=== PATIENT | female | born 1980 ===

== ENCOUNTER 2019-12-07 15:20 | Observation (INO) ==
--- NOTE | 2019-12-07 16:29 | History & Physical Report ---
Date of Service December 07, 2019 Assessment & Plan (1) Ovarian mass, right: (2) : Patient is with a right adnexal mass and fluid, most likely blood , that is very suspicious for ectopic . She is hemodynamically stable with normal h/h. Her quant is 835. It is possible that she has a very early iup with this quant. However, this does not r/o ectopic and there is some, likely hemorrhagic process going on in the right adnexa. It is possible this has ruptured a couple of days ago and has walled itself off and is not actively bleeding. It is possible that she has a hemorrhagic ovarian cyst with clot and hemoperitoneum, with a intrauterine . The bottom line is that to know for sure would require dx lpsc for evaluation of the pelvis and right adnexa. Described this to the patient with the risks: anesthesia, bleeding, transfusion, damage to surrounding structures (bowel, bladder , vessels, nerves, ureters), need for further surgery, persistent of unknown location. If ectopic would do salpingectomy or salpingostomy. If ruptured cyst, would cauterize, possibly do cystectomy or removal of ovary, depending on the situation, however, would try to avoid this if does not appear to be an ectopic . Discussed that we could possible manage with very close expectant f/u following quants and serial ultrasounds, but would probably want to hospitalize her for observation, because could start bleeding again at any time. Patient is interested in proceeding with definitive diagnosis by surgery. Consent reviewed and signed and will proceed. Did discuss that if findings not consistent with ectopic, may be an intrauterine --viability unknown. May need further close follow up with quants and ultrasounds for viability in that situation. Discussed surgery could cause loss of an intrauterine , but given the uncertainty of the diagnosis makes it prudent to proceed with surgery. She agrees History of Present Illness Chief Complaint: irregular bleeding, pelvic pain Primary Care Provider: John Mccracken Patient is a [id number] with LMP of 10/20 (normal and when expected) who presents to the office today to see Dr. Apple for irregular bleeding and pelvic pain. She was in her usual state of health until her lmp on 10/20. She notes that she has normal monthly menstrual periods without DUB. She then started spotting on 6/5, which lasted for 5 days, and then proceeded to have another period. She reports "a few weeks ago" nahum had an episode of bad pain in her lower belly that bent her over. Does not remember that this was related to period. It resolved. Two days ago she had another pain like this. Was very uncomfortable. Helped when she laid still on her belly. Today she notes midline lower abdominal pain that feels crampy in nature. Not as bad as it was 2 days ago. She noted that her bleeding a couple of days ago had really d ecreased to just some brown d/c on her tampon. She switched to a liner and a couple of hours later had filled it with red blood, continues to have heavy red bleeding. Patient has a hx of an ectopic , she thinks maybe on her right treated with MTX. She has hx of c/s 13 years ago. She has a hx of CT in her early 20s, treated. She is with her same partner for the last 14 years, he is the father of her child. Denies any new partners. She has not contracepted in years. Would be ok with a . Saw Dr. Apple in the clinic having an ultrasound first. US shows a nl size and shape uterus with a small microcystic are in the fundus. No sac noted. The left ovary is small with a 1.9cm complex cystic area. There is a complex appearing, vascular area in the right adnexa with a ?ectopic /rounded mass area, measuring 2.5x2.4x2.7 cm. There appears to be fluid around this. The entire area has a volume of 96cc. She had a +upt in the office. She was sent to the ED for concern for ruptured ectopic . Allergies Allergy/AdvReac Type Severity Reaction Status Date / Time Penicillins Allergy Intermediate HIVES A Verified 12/07/19 16:18 CHILD Home Medications Home Medications Medication Instructions Recorded Confirmed Type multivitamin 1 tab PO DAILY 12/07/19 12/07/19 History omega 3-qnp-xai-fish oil [Fish Oil] 1 cap PO DAILY 12/07/19 12/07/19 History Patient History Medical History Bartholin's cyst History of chlamydia History of ectopic Surgical History H/O colposcopy with cervical biopsy 2005, 2011 History of delivery Social History (Updated 12/07/19 @ 16:37 by Khloe Mims MD, FACOG) Preferred Language: German Communication Ability: Effective marital status: Life Partner Current Living Situation: Family Feels Safe at Home: Yes Smoking Status: Never smoker Hx Alcohol Use: No Hx Substance Use: No OB History g1--c/s g2--ectopic, ?right, treated with MTX DIESEL LUBE TECH History hx of abnl pap with colpo in 2011, [address] in 20s denies other stds. Review of Systems All systems reviewed & are unremarkable except as noted in HPI & below Physical Exam Constitutional: WD/WN, vitals as above Neck: trachea midline, no thyromegaly Respiratory: normal respiratory effort, lungs clear to auscultation Cardiovascular: RRR, no murmur, no edema Gastrointestinal (Abdomen): soft, nondistended, tender to palpation L>R with some guarding but no rebound Psychiatric: A+Ox3, euthymic affect Genitourinary: nefg, nl bus, no blood noted exam limited to BME--vagina palpates normal, tenderness to palpation of the pelvis in general, tenderness to motion of the uterus, no appreciable adnexal masses or tenderness, cx palpates normal and nulliparous. Results & Data ([facility]) Vital Signs (Past 12 Hours) Vital Signs Temp Pulse Resp BP Pulse Ox 12/07/19 15:41 37.5 C 71 18 122/83 99 Coding Level of Care Code None Diagnoses Ovarian mass, right N83.8 Z34.90
--- NOTE | 2019-12-07 16:33 | Emergency Department Note ---
ED Visit Note I did not see this patient, directly see by Dr Mims. .
[2019-12-07 17:08] LABS: Basophils # (auto) 0.06 K/uL (0-0.2); Basophils % (auto) 0.5 %; Eosinophils # (auto) 0.06 K/uL (0-0.5); Eosinophils % (auto) 0.5 %; Hematocrit (blood only) 37.9 % (37-47); Hemoglobin 12.5 g/dL (12.0-16.0); Immature Granulocytes # (auto) 0.03 K/uL (0.00-0.02); Immature Granulocytes % (auto) 0.3 %; Lymphocytes # (auto) 2.85 K/uL (1.2-3.4); Lymphocytes % (auto) 24.2 %; Mean Corpuscular Hemoglobin 29.9 pg (25-34); Mean Corpuscular Volume 90.7 fL (80-100); Mean Platelet Volume 9.9 fL (7.4-10.4); Monocytes # (auto) 0.92 K/uL (0.11-0.59); Monocytes % (auto) 7.8 %; Neutrophils # (auto) 7.86 K/uL (1.4-6.5); Neutrophils % (auto) 66.7 %; Platelet Count 325 K/uL (130-400); Red Blood Count 4.18 M/uL (4.2-5.4); White Blood Count 11.78 K/uL (4.8-10.8)
[2019-12-07] MEDS: LACTATED RINGER'S 1,000 ML IV SCH (17:08)
[2019-12-07 17:25] LABS: Albumin Level 3.6 gm/dl (3.4-5.0); BUN Creatinine Ratio 14.3 (10-20); Calcium 9.6 mg/dl (8.5-10.1); Creatinine Clr Calc Pharmacy 71.7 ml/min; Est GFR (African American) 88.6; Est GFR (Non-African American) 76.4; Potassium 3.4 mmol/L (3.5-5.1)
[2019-12-07 17:28] LABS: Albumin Globulin Ratio 0.9 (0.9-2); Bilirubin,Total 0.4 mg/dl (0.2-1); Globulin 3.9 gm/dl (2.5-4.0); Total Protein 7.5 gm/dl (6.4-8.2)
[2019-12-07] MEDS ORDERED: BUPIVACAINE 0.5 % 5 MG/1 ML MPF 30ML VIAL ONE (18:41)
--- NOTE | 2019-12-07 19:10 | Anesthesiology Progress Note ---
Date of Service December 07, 2019 Anesthesia Post Procedure Vital Signs Vital Signs: Temp Pulse Pulse Resp BP BP Pulse Ox 12/07/19 19:00 63 16 114/69 100 12/07/19 17:09 73 20 107/74 100 12/07/19 15:41 37.5 C 71 18 122/83 99 Transfer of Care Handoff Completed per policy Notes Mental Status: alert / awake / arousable and participated in evaluation Patient Amnestic to Procedure: Yes Nausea / Vomiting: adequately controlled Pain: adequately controlled Airway Patency, RR, SpO2: stable & adequate BP & HR: stable & adequate Hydration State: stable & adequate Anesthetic Complications: no major complications apparent
--- NOTE | 2019-12-07 19:11 | Anesthesiology Consultation ---
Date of Service December 07, 2019 Assessment & Plan Chart Review Chart Review: Acceptable Risk for Surgery Consults Requested none History Surgery Operation Date: 12/07/19 18:30 Proposed Procedures p Laparoscopic Operative - Khloe Mims MD, FACOG Height/Weight Height: 4 ft 11 in Weight: 76.6 kg Allergies Allergy/AdvReac Type Severity Reaction Status Date / Time Penicillins Allergy Intermediate HIVES A Verified 12/07/19 16:18 CHILD Medications Home Medications Medication Instructions Recorded Confirmed Last Taken multivitamin 1 tab PO DAILY 12/07/19 12/07/19 12/07/19 omega 2-kbg-ntt-fish oil [Fish Oil] 1 cap PO DAILY 12/07/19 12/07/19 12/07/19 Active Medications Generic Name Dose Route Start Last Admin Trade Name Freq PRN Reason Stop Dose Admin Lactated Ringer's 1,000 mls @ 125 mls/hr 12/07/19 16:15 12/07/19 17:08 Lr IV 01/06/20 16:14 125 mls/hr .Q8H KENJI Administration Past Medical History Medical History Bartholin's cyst History of chlamydia History of ectopic Past Surgical History Surgical History H/O colposcopy with cervical biopsy 2011 History of delivery Social History Smoking Status: Never smoker Hx Alcohol Use: No Hx Substance Use: No Physical Exam Vital Signs Last Vital Signs Temp 37.5 C 12/07/19 15:41 Pulse 63 12/07/19 19:00 Resp 16 12/07/19 19:00 BP 114/69 12/07/19 19:00 Pulse Ox 100 12/07/19 19:00 Testing Laboratory Results 12/07/19 16:57 12/07/19 16:57 HCG, Quant 835 mIU/ml 12/07/19 16:57 Blood Type O Positive 12/07/19 16:57 Antibody Screen NEGATIVE 12/07/19 16:57 12/07/19 16:57 HCG, Quant 835
[2019-12-07] MEDS ORDERED: MIDAZOLAM HCL 1 MG/ML 2ML VIAL ONE (19:14)
[2019-12-07] MEDS ORDERED: fentaNYL citrate 100 MCG/2 ML VIAL ONE ×2 (19:15)
[2019-12-07] MEDS ORDERED: LIDOCAINE HCL 2% 2 ML VIAL/AMP(20MG/ML) INFIL ONE (19:23)
[2019-12-07] MEDS ORDERED: ONDANSETRON INJ 2 MG/ML 2 ML VIAL ONE (19:23)
[2019-12-07] MEDS ORDERED: PROPOFOL IV EMULSION 10 MG/ML 20 ML VIAL IV ONE (19:23)
[2019-12-07] MEDS ORDERED: ROCURONIUM BROMIDE 10 MG/ML 5 ML VIAL IV ONE ×3 (19:23→21:07)
[2019-12-07] MEDS ORDERED: GLYCOPYRROLATE 0.2 MG/ML VIAL ONE (19:24)
[2019-12-07] MEDS ORDERED: NEOSTIGMINE METHYLSULFATE 5 MG/5 ML SYR ONE (19:24)
[2019-12-07] MEDS ORDERED: DEXAMETHASONE SOD INJ 4 MG/ML VIAL ONE (19:24)
[2019-12-07] MEDS ORDERED: PROMETHAZINE HCL 12.5 MG in SODIUM CHLORIDE 0.9% 50 ML IV PRN (19:45)
[2019-12-07] MEDS ORDERED: ONDANSETRON INJ 2 MG/ML 2 ML VIAL IV PRN ×2 (19:45→21:52)
[2019-12-07] MEDS ORDERED: ePHEDrine sulfate 50 MG/ML AMP IV PRN (19:45)
[2019-12-07] MEDS ORDERED: METOCLOPRAMIDE HCL INJ 5 MG/ML 2 ML VIAL IV PRN (19:45)
[2019-12-07] MEDS ORDERED: ATROPINE SULFATE 0.1 MG/ML 10ML SYR IV PRN (19:45)
[2019-12-07] MEDS ORDERED: HYDROmorphone INJ 2 MG/ML SYR/VIAL IV PRN (19:45)
[2019-12-07] MEDS ORDERED: fentaNYL citrate 100 MCG/2 ML VIAL IV PRN (19:45)
--- NOTE | 2019-12-07 21:47 | Post Operative Brief Note ---
PG Immediate Post Op with CF Date of Surgery December 07, 2019 Pre & Post Diagnosis Operation Date: 12/07/19 18:30 Pre-Op Diagnosis: Right Ovarian Mass; Pelvic Pain; Suspected Ectopic Post-Op Diagnosis: Ruptured Right tubal Ectopic I identified the patient and participated in the time-out.: Yes Procedure Operation Date: 12/07/19 18:30 Actual Procedures p Diagnostic Laparoscopy, Right Salpingectomy(Right) - Khloe Mims MD, FACOG Surgeon Khloe Mims MD, FACOG Thiokol Operator nursing Estimated Blood Loss 10 Findings Consistent with Post-Op Diagnosis Specimens Specimen Description: Permanent Specimen: A. Ectopic and Right Fallopian Tube DELIVERY TECHNICIAN Major Procedure Codes Laparotomy/Laparoscopic [address] [facility] (right salpingectomy, ovary maintained)
[2019-12-07] MEDS ORDERED: ACETAMINOPHEN 325 MG TAB PO PRN (21:52)
[2019-12-07] MEDS ORDERED: KETOROLAC 30 MG/ML VIAL IV PRN (21:52)
[2019-12-07] MEDS ORDERED: MoRPHine SULFATE 2 MG/ML CARP IV PRN ×3 (21:52)
[2019-12-07] MEDS ORDERED: OXYCODONE/ACETAMINOPHEN 5mg/325mg TAB PO PRN (21:52)
[2019-12-07] MEDS ORDERED: LACTATED RINGER'S 1,000 ML IV SCH (22:00)
--- NOTE | 2019-12-07 22:44 | Anesthesiology Progress Note ---
Date of Service December 07, 2019 Anesthesia Post Procedure Vital Signs Vital Signs: Temp Pulse Pulse Pulse Resp BP BP 12/07/19 22:25 60 16 111/76 12/07/19 22:15 36.6 C 80 16 110/74 12/07/19 22:05 61 14 116/77 12/07/19 21:55 36.8 C 80 20 135/72 12/07/19 19:18 37.1 C 82 18 106/72 12/07/19 19:00 63 16 114/69 12/07/19 17:09 73 20 107/74 12/07/19 15:41 37.5 C 71 18 122/83 Pulse Ox 12/07/19 22:25 96 12/07/19 22:15 97 12/07/19 22:05 97 12/07/19 21:55 96 12/07/19 19:18 100 12/07/19 19:00 100 12/07/19 17:09 100 12/07/19 15:41 99 Transfer of Care Handoff Completed per policy Notes Mental Status: alert / awake / arousable and participated in evaluation Patient Amnestic to Procedure: Yes Nausea / Vomiting: adequately controlled Pain: adequately controlled Airway Patency, RR, SpO2: stable & adequate BP & HR: stable & adequate Hydration State: stable & adequate Anesthetic Complications: no major complications apparent Notes: Note: Prior Post Procedure Note was entered in error.
--- NOTE | 2019-12-07 23:33 | Operative Report (OR) ---
DATE OF OPERATION: 12/07/2019 PREOPERATIVE DIAGNOSES: 1. of uncertain location. 2. Complex right adnexal structure with concern for ectopic . 3. Pelvic pain. POSTOPERATIVE DIAGNOSIS: Ruptured right tubal ectopic . PROCEDURE: Diagnostic laparoscopy with right salpingectomy. SURGEON: Khloe Mims MD. ANESTHESIA: General per endotracheal tube. ESTIMATED BLOOD LOSS: 10 mL. INTRAVENOUS FLUIDS: 1200 mL. URINE OUTPUT: 400 mL of clear yellow urine drained from the bladder at the end of the procedure. INDICATIONS: The patient is a 3, para 1-0-1-1 with last menstrual period of October 20 who presented with some pain and dysfunctional bleeding. She had a positive urine test. She had a complex right adnexal structure that was vascular that was concerning for ectopic . Her quant was 835. SURGICAL FINDINGS: Left tube and ovary were normal. There were adhesions of the omentum to the anterior abdominal wall. There was a ruptured right ectopic tubal . This rupture appeared to be somewhat older because there was no active bleeding from it. It was mostly clotted off. There was no hemoperitoneum per se, although a little bit of blood, most of it appeared clotted, the right ovary appeared normal. COMPLICATIONS: None. DRAINS: None. DISPOSITION: To recovery room in stable condition. DESCRIPTION OF PROCEDURE: The patient was taken to the operating room where she was identified verbally and by bracelet. She was placed in dorsal supine position where general anesthesia was induced without difficulty. She was then placed in [facility] and prepped and draped in normal sterile fashion. Time-out was held identifying correct patient, procedure and positioning. There was no preoperative antibiotic. There were no concerns. Attention was turned to the vagina where a sponge stick was placed into the vagina, and a Geller catheter was placed. Gloves were then changed. Attention was turned to the abdomen where an infraumbilical incision was made with the knife. This was stretched with a snap. Veress needle was attempted to be placed through this always coming up with a pressure higher than 10 mmHg. Therefore, it was decided that we proceed with open laparoscopy. The umbilical incision was extended slightly. We dissected down to the fascia. The fascia was grasped bilaterally and entered with scissors. Two 2 sutures of 0 Vicryl were placed through each edge of the fascia. The peritoneum was grasped bilaterally and entered sharply with scissors. Intraperitoneal placement was confirmed by palpation with a finger. The Naida trocar was placed through this. The patient was placed into Trendelenburg and the abdomen was insufflated with carbon dioxide gas. The above noted findings were noted with a ruptured old right ectopic tubal . There was lots of clot. There was moderate amount of clot within the pelvis. Using the Harmonic, a right and left lower quadrant port was placed under direct visualization. There was a large omental adhesions slightly to the left of midline just below the umbilicus to the anterior abdominal wall but we were able to visualize around this. Then using the Harmonic scalpel, the tube was removed in its entirety. It was placed in an EndoCatch bag through the infraumbilical incision, a camera was placed into the right lower quadrant incision and the ectopic was removed through the incision. The trocar was replaced. Some clot and questionable ectopic material was then gently removed through the trocar until the pelvis was clean. The pelvis was copiously irrigated. Hemostasis was noted to be excellent and procedure was terminated. The trocars were removed from the vagina. The fascia of the infraumbilical incision was reapproximated with 0 Vicryl. The incisions were closed with 4-0 Vicryl in a subcuticular fashion. The skin was infiltrated with 0.5% Marcaine and the incisions were treated with Dermabond. After discovering that there was a ruptured tubal ectopic, I decided to return to the vagina to place a Jaramillo uterine cervical manipulator, so we could better manipulate the uterus. I was able to place that and then gloves were then changed returning to the abdomen. At the end of the procedure. The instruments were removed from the vagina. Hemostasis was noted to be excellent and the Geller catheter was removed. All sponge, lap and needle counts were correct x2. The patient tolerated the procedure well and was taken to recovery room in stable condition. I attest to the content of the Intraoperative Record and any orders documented therein. Any exception s are noted below.
[2019-12-07] MEDS: IBUPROFEN 200 MG TAB PO PRN (23:39)
[2019-12-08] MEDS: LACTATED RINGER'S 1,000 ML IV SCH (01:18)
[2019-12-08] MEDS: OXYCODONE/ACETAMINOPHEN 5mg/325mg TAB PO PRN ×2 (05:12→10:12)
--- NOTE | 2019-12-08 06:57 | Gynecologic Progress Note ---
Date of Service December 08, 2019 Assessment & Plan (1) Ruptured right tubal ectopic causing hemoperitoneum: Patient doing well this am. Plan to d/c home after breakfast. INstructions given. f/u in the office in two weeks. Admission and Anticipated Discharge Date Admission Date: December 07, 2019 Subjective Patient feeling well this am. Hungry. No n/v. Notes pain controlled. Feeling better. Review of Systems Review of Systems: All systems reviewed & are unremarkable except as noted in HPI & below Physical Exam Constitutional: WD/WN, vitals as above Cardiovascular: Extremities: no calf tenderness and no edema Gastrointestinal (Abdomen): soft, nd, nt incision c/d/i, bruising at umbilical incision Psychiatric: A+Ox3, euthymic affect Results & Data ([facility]) Vital Signs (Past 12 Hours) Vital Signs Temp Pulse Pulse Pulse Resp BP Pulse Ox 12/08/19 05:10 36.5 C 66 22 95/50 L 99 12/08/19 03:00 36.6 C 65 20 96/51 L 99 12/08/19 02:00 36.6 C 65 20 96/52 L 98 12/07/19 23:50 36.5 C 63 20 96/49 L 98 12/07/19 23:15 36.7 C 63 20 96/46 L 98 12/07/19 22:39 36.7 C 65 18 112/71 97 12/07/19 22:25 60 16 111/76 96 12/07/19 22:15 36.6 C 80 16 110/74 97 12/07/19 22:05 61 14 116/77 97 12/07/19 21:55 36.8 C 80 20 135/72 96 12/07/19 19:18 37.1 C 82 18 106/72 100 12/07/19 19:00 63 16 114/69 100 PG Care Time/CCT Total # of Minutes Spent Total Time Spent with Patient: Total time spent is greater than 50% in coordination of care (as documented) at patient's floor/unit and/or counseling patient: Coding Level of Care Code None Diagnoses Ruptured right tubal ectopic causing hemoperitoneum O00.101; K66.1
[2019-12-08] MEDS: IBUPROFEN 200 MG TAB PO PRN (11:43)
--- NOTE | 2019-12-10 10:46 | Discharge Summary (DS) ---
PREOPERATIVE DIAGNOSES: 1. . 2. Ovarian mass with hemoperitoneum on the right, suspicious for ectopic . HISTORY: The patient is a 39-year-old white female 3, para 1-0-1-1 with last menstrual period of 10/21/2019, who presents to the office today to see Dr. Apple for irregular bleeding and pelvic pain. She was in her usual state of health until her period on the . She notes she has normal monthly menstrual periods without dysfunctional uterine bleeding. She then started spotting on 11/09/2019 which lasted for 5 days, then proceeded to have another period. She reports a few weeks ago" She had an episode of bad pain in her lower belly that bent her over", does not remember that this was related to a period. It resolved. Two days ago, she had another pain like this, it was very uncomfortable. It helps when she laid still and on her belly. This pain improved over time. Today, she notes midline lower abdominal pain that feels crampy in nature, not as bad as it was 2 days ago. She noted that her bleeding a couple days ago really decreased to just some brown discharge on her tampon. She switched to a liner and a couple of hours later had filled it with red blood and continues to have heavy red bleeding. The patient has a history of an ectopic , she thinks maybe on the right, treated with methotrexate several years ago. She has a history of a 13 years ago. She had chlamydia in her early 20s that was treated. She is with her same partner in the last 14 years which is the father of her child. She denies any new partners. She has not contracepted in years. She would be okay with a . Saw Dr. Apple in the clinic having an ultrasound first; ultrasound shows a normal sized and shaped uterus with a small microcystic area in the fundus. No sac noted. The left ovary is small with a 1.9 cm complex cystic area. There is a complex appearing vascular area in the right adnexa with a questionable ectopic/rounded mass area measuring 2.5 x 2.4 x 2.7 cm. There appears to be fluid around this. The entire area has a volume of 96 mL. She had a positive urine test in the office and she was sent to the Emergency Department for concern for ruptured ectopic . For the rest of patient's detailed history and physical, please see her history and physical. ASSESSMENT: This is a patient with a of unknown location and ovarian mass on the right. There is also fluid around it, which is most likely blood and is very suspicious for ectopic . Her quant is 835. It is possible that she has a very early IUP with the squat and we are not seeing anything in the uterus yet and what we are seeing on the right is a complex ovarian cyst or ruptured hemorrhagic ovarian cyst. She is hemodynamically stable. The bottom line is that the [facility] would require diagnostic laparoscopy, evaluation of the pelvis and the right adnexa and she wishes to proceed with this. HOSPITAL COURSE: The patient was admitted. She underwent a diagnostic laparoscopy where a ruptured right tubal ectopic was diagnosed. She underwent a right salpingectomy for this. It appears at the time of surgery that this happened some time ago as there was no real active bleeding, but a lot of well-formed clot and the ectopic was kind of adhesed to the right pelvic sidewall. The patient tolerated this procedure well. Estimated blood loss 10 mL. Since this surgical procedure was done at 10:00 at night she was admitted for observation overnight. She tolerated a regular diet, ambulated without difficulty, tolerated oral pain medications and voided after Geller was removed in the operating room. She was discharged home the morning following surgery, she was instructed not to have sex. Will follow quants to0 and precautions were given.
== END 2019-12-08 11:55 | disposition home or self-care (01) ==
LOC: ED 15:20 → OR 19:07 → 4S2 19:07